=== PATIENT | male | born 1950 | race Caucasian/White ===

== ENCOUNTER 2025-07-21 14:10 | Inpatient (IN) | payer MEDICARE, OTHER ==
[~2025-07-21] VITALS: Ht 180.3 cm; Wt 75.7 kg
[2025-07-21 14:34] LABS: *BILIRUBIN,URIN NEGATIVE (NEGATIVE); *CLARITY,URINE CLEAR (CLEAR); *COLOR,URINE YELLOW (YELLOW); *KETONES,URINE NEGATIVE (NEGATIVE); *PROTEIN,URINE NEGATIVE (NEGATIVE); *UROBILINOGEN,URINE 2.0 E.U./dl (NORMAL); LEUKOCYTE ESTERASE ,URINE NEGATIVE (NEGATIVE); NITRITE, URINE NEGATIVE (NEGATIVE); UGLUCOSE NEGATIVE (NEGATIVE)
[2025-07-21 14:36] LABS: *BLOOD, URINE TRACE (NEGATIVE)
[2025-07-21 14:46] LABS: *AMPHETAMINE, URINE NEGATIVE (NEGATIVE); *BARBITURATE, URINE NEGATIVE (NEGATIVE); *BENZODIAZEPINE, URINE NEGATIVE (NEGATIVE); *CANNABINOID, URINE NEGATIVE (NEGATIVE); *COCCAINE, URINE NEGATIVE (NEGATIVE); *OPIATE, URINE NEGATIVE (NEGATIVE); *PHENCYCLIDINE SCREEN,URINE NEGATIVE (NEGATIVE); FENTANYL, URINE NEGATIVE (NEGATIVE)
[2025-07-21 14:53] LABS: SQUAMOUS EPITHELIAL CELL,UR NONE SEEN /HPF (NONE SEEN)
[2025-07-21] MEDS ORDERED: diphenhydrAMINE 50 MG/1 ML VIAL ONE (15:04)
[2025-07-21] MEDS ORDERED: HALOPERIDOL LACTATE 5 MG/1 ML VIAL ONE (15:05)
[2025-07-21] MEDS ORDERED: LORAZEPAM 2 MG/1 ML VIAL ONE (15:05)
[2025-07-21] MEDS: HALOPERIDOL LACTATE 5 MG/1 ML VIAL IM ONE (15:18)
[2025-07-21] MEDS: LORAZEPAM 2 MG/1 ML VIAL IM ONE (15:18)
[2025-07-21] MEDS: diphenhydrAMINE 50 MG/1 ML VIAL IM ONE (15:18)
[2025-07-21 15:42] LABS: PLATELET COUNT (AUTO) 82 K/uL (152-348); RED BLOOD CELL COUNT(AUTO) 4.52 MIL/uL (4.06-5.63); RED CELL DISTRIBUTION WIDTH 15.4 % (12.1-16.2); WHITE BLOOD COUNT (AUTO) 3.9 K/uL (3.6-10.2)
[2025-07-21 15:50] LABS: CREATININE 0.8 mg/dL (0.6-1.3); SODIUM SERUM 136 mmol/L (136-145); UREA NITROGEN, BLOOD 21 mg/dL (7-18)
[2025-07-21 15:58] LABS: ETHANOL < 3 MG/DL (0-10)
[2025-07-21 16:01] VITALS: BP 149/73
[2025-07-21 16:02] LABS: ASPARTATE AMINOTRANSFERASE 8 U/L (15-37); TOTAL PROTEIN, SERUM 7.8 g/dL (6.4-8.2)
[2025-07-21 16:42] LABS: BAND % (MANUAL) 1 % (0-10); EOSINOPHILS % (MANUAL) 1 % (0-8); LYMPHOCYTES % (MANUAL) 22 % (20-40); MONOCYTES % (MANUAL) 23 % (2-10); NEUTROPHILS % (MANUAL) 53 % (42-75)
[2025-07-21 16:43] LABS: PLATELET ESTIMATE DECREASED
[2025-07-21 18:12] VITALS: BP 137/88; TEMP 98.2; O2SAT 99
[2025-07-21] MEDS ORDERED: LORAZEPAM 1 MG TABLET PO PRN ×2 (18:15→20:15)
[2025-07-21] MEDS ORDERED: ACETAMINOPHEN 325 MG TABLET PO PRN (18:15)
[2025-07-21] MEDS ORDERED: MAG HYDROX/AL HYDROX/SIMETH 30 ML LIQUID UDC PO PRN (18:15)
[2025-07-21] MEDS ORDERED: MAGNESIUM HYDROXIDE 30 ML LIQUID UDC PO PRN (18:15)
[2025-07-21] MEDS ORDERED: TEMAZEPAM 15 MG CAPSULE PO PRN (18:15)
[2025-07-21 19:55] VITALS: BP 112/68; TEMP 98.1; O2SAT 96
[2025-07-21] MEDS: TEMAZEPAM 15 MG CAPSULE PO ONE (21:00)
[2025-07-21] MEDS ORDERED: APIX5TAB PO (23:42)
[2025-07-21] MEDS ORDERED: CARV3.12 PO (23:42)
[2025-07-21] MEDS ORDERED: TRAZ-182 PO (23:42)
[2025-07-21] MEDS ORDERED: RISP3TAB5 PO (23:42)
[2025-07-21] MEDS ORDERED: RISP0.5T5 PO (23:42)
[2025-07-22] MEDS: OLANZAPINE 2.5 MG TABLET PO SCH (12:45)
[2025-07-23] MEDS ORDERED: ACET325T53 PO (09:18)
[2025-07-23] MEDS ORDERED: LORA-259 PO (09:18)
[2025-07-23] MEDS ORDERED: MAG30ORA PO (09:19)
[2025-07-23] MEDS ORDERED: OLAN2.5T3 PO (09:20)
[2025-07-23] MEDS ORDERED: MAGN400O6 PO (09:20)
[2025-07-23] MEDS ORDERED: TEMA30CA PO (09:21)
== END 2025-07-22 16:58 | disposition short-term general hospital (02) | DRG 885 ==
LOC: ER 14:10 → GPS 16:49
PROVIDERS: ADMIT Psychiatry & Neurology Psychiatry
DX: F20.9 Schizophrenia, unspecified (principal); G93.40 Encephalopathy, unspecified; R78.81 Bacteremia; I48.91 Unspecified atrial fibrillation; J44.9 Chronic obstructive pulmonary disease, unspecified; B96.89 Other specified bacterial agents as the cause of diseases classified elsewhere; Z91.199 Patient's noncompliance with other medical treatment and regimen due to unspecified reason; Z79.01 Long term (current) use of anticoagulants; M15.9 Polyosteoarthritis, unspecified; I10 Essential (primary) hypertension; D69.6 Thrombocytopenia, unspecified; F32.A Depression, unspecified; Z79.899 Other long term (current) drug therapy
CPT/HCPCS: 36415; 70030-TC; 71045; 83605; 84443; 84484; 85730; 87040; 87086; G0480; J1200; J1630; J2060

== ENCOUNTER 2025-07-22 17:18 | Inpatient (IN) | payer MEDICARE, OTHER ==
[~2025-07-22] VITALS: Ht 185.4 cm; Wt 81.2 kg
[~2025-07-22 17:18] MED LIST: APIX5TAB PO; CARV3.12 PO; RISP0.5T5 PO; RISP3TAB5 PO; TRAZ-182 PO
[2025-07-22] MEDS ORDERED: REMEDY ESSENTIAL ZINC PASTE 113 GM TP PRN (18:30)
[2025-07-22] MEDS ORDERED: MAGNESIUM HYDROXIDE 30 ML LIQUID UDC PO PRN (18:30)
[2025-07-22] MEDS ORDERED: ONDANSETRON 4 MG/2 ML VIAL IV PRN (18:30)
[2025-07-22] MEDS ORDERED: ACETAMINOPHEN 325 MG TABLET PO PRN (18:30)
[2025-07-22] MEDS: OLANZAPINE 10 MG VIAL IM ONE (19:30)
[2025-07-22] MEDS: diphenhydrAMINE 50 MG/1 ML VIAL IM ONE (22:25)
[2025-07-22] MEDS: LORAZEPAM 2 MG/1 ML VIAL IM ONE (22:25)
[2025-07-22] MEDS: HALOPERIDOL LACTATE 5 MG/1 ML VIAL IM ONE (22:25)
[2025-07-23] MEDS: PANTOPRAZOLE SODIUM 40 MG TABLET.DR PO SCH (07:00)
[2025-07-23] MEDS: VANCOMYCIN IV 1,250 MG in IV DEXTROSE 5% 250 ML IV SCH (08:00)
[2025-07-23] MEDS ORDERED: LORA-259 PO (09:18)
[2025-07-23] MEDS ORDERED: ACET325T53 PO (09:18)
[2025-07-23] MEDS ORDERED: MAG30ORA PO (09:19)
[2025-07-23] MEDS ORDERED: MAGN400O6 PO (09:20)
[2025-07-23] MEDS ORDERED: OLAN2.5T3 PO (09:20)
[2025-07-23] MEDS ORDERED: TEMA30CA PO (09:21)
[2025-07-23] MEDS ORDERED: HALOPERIDOL LACTATE 5 MG/1 ML VIAL IM ONE ×2 (12:15→12:30)
[2025-07-23] MEDS ORDERED: LORAZEPAM 2 MG/1 ML VIAL IV ONE (12:15)
[2025-07-23] MEDS: diphenhydrAMINE 50 MG/1 ML VIAL IM ONE ×2 (13:13→20:45)
[2025-07-23] MEDS: LORAZEPAM 2 MG/1 ML VIAL IM ONE (13:13)
[2025-07-23] MEDS: HALOPERIDOL LACTATE 5 MG/1 ML VIAL IM ONE (13:13)
[2025-07-23 14:28] LABS: PLATELET COUNT (AUTO) 82 K/uL (152-348); RED BLOOD CELL COUNT(AUTO) 4.92 MIL/uL (4.06-5.63); RED CELL DISTRIBUTION WIDTH 15.1 % (12.1-16.2); WHITE BLOOD COUNT (AUTO) 3.2 K/uL (3.6-10.2)
[2025-07-23 14:40] LABS: ASPARTATE AMINOTRANSFERASE 15 U/L (15-37); CREATININE 0.7 mg/dL (0.6-1.3); SODIUM SERUM 136 mmol/L (136-145); TOTAL PROTEIN, SERUM 7.5 g/dL (6.4-8.2); UREA NITROGEN, BLOOD 18 mg/dL (7-18)
[2025-07-23] MEDS: IV NS 1000 ML 1,000 ML IV PRN (16:23)
[2025-07-23 16:43] VITALS: BP 126/79; TEMP 97.5; O2SAT 97
[2025-07-23 19:14] LABS: *BILIRUBIN,URIN NEGATIVE (NEGATIVE); *BLOOD, URINE NEGATIVE (NEGATIVE); *CLARITY,URINE CLEAR (CLEAR); *COLOR,URINE YELLOW (YELLOW); *KETONES,URINE NEGATIVE (NEGATIVE); *PROTEIN,URINE NEGATIVE (NEGATIVE); *UROBILINOGEN,URINE 1.0 E.U./dl (NORMAL); LEUKOCYTE ESTERASE ,URINE NEGATIVE (NEGATIVE); NITRITE, URINE NEGATIVE (NEGATIVE); UGLUCOSE NEGATIVE (NEGATIVE)
[2025-07-23 19:32] LABS: SQUAMOUS EPITHELIAL CELL,UR NONE SEEN /HPF (NONE SEEN)
[2025-07-23 20:32] LABS: BAND % (MANUAL) 1 % (0-10); LYMPHOCYTES % (MANUAL) 30 % (20-40); MONOCYTES % (MANUAL) 25 % (2-10); NEUTROPHILS % (MANUAL) 44 % (42-75); PLATELET ESTIMATE DECREASED
[2025-07-24] MEDS: LORAZEPAM 2 MG/1 ML VIAL IM PRN (05:06)
[2025-07-24] MEDS: HALOPERIDOL LACTATE 5 MG/1 ML VIAL IM PRN (05:06)
[2025-07-24 07:15] LABS: PLATELET COUNT (AUTO) 85 K/uL (152-348); RED BLOOD CELL COUNT(AUTO) 4.77 MIL/uL (4.06-5.63); RED CELL DISTRIBUTION WIDTH 15.3 % (12.1-16.2); WHITE BLOOD COUNT (AUTO) 4.1 K/uL (3.6-10.2)
[2025-07-24 07:39] LABS: CREATININE 0.9 mg/dL (0.6-1.3); SODIUM SERUM 139 mmol/L (136-145); UREA NITROGEN, BLOOD 15 mg/dL (7-18)
[2025-07-24 09:17] LABS: EOSINOPHILS % (MANUAL) 1 % (0-8); LYMPHOCYTES % (MANUAL) 29 % (20-40); MONOCYTES % (MANUAL) 27 % (2-10); NEUTROPHILS % (MANUAL) 43 % (42-75)
[2025-07-24 09:18] LABS: PLATELET ESTIMATE DECREASED
[2025-07-24] MEDS: VANCOMYCIN IV 1,000 MG in IV DEXTROSE 5% 250 ML IV SCH (20:44)
[2025-07-25 06:45] LABS: PLATELET COUNT (AUTO) 79 K/uL (152-348); RED BLOOD CELL COUNT(AUTO) 4.72 MIL/uL (4.06-5.63); RED CELL DISTRIBUTION WIDTH 15.4 % (12.1-16.2); WHITE BLOOD COUNT (AUTO) 4.2 K/uL (3.6-10.2)
[2025-07-25 08:45] LABS: CREATININE 1.1 mg/dL (0.6-1.3); SODIUM SERUM 139 mmol/L (136-145); UREA NITROGEN, BLOOD 29 mg/dL (7-18)
[2025-07-25 09:18] LABS: EOSINOPHILS % (MANUAL) 1 % (0-8); LYMPHOCYTES % (MANUAL) 22 % (20-40); MONOCYTES % (MANUAL) 31 % (2-10); NEUTROPHILS % (MANUAL) 46 % (42-75); PLATELET ESTIMATE DECREASED
[2025-07-25 11:27] VITALS: BP 101/59; TEMP 97.6; O2SAT 94
[2025-07-25 15:33] VITALS: BP 107/73; TEMP 98.2; O2SAT 98
[2025-07-26 03:30] LABS: *BILIRUBIN,URIN NEGATIVE (NEGATIVE); *CLARITY,URINE CLEAR (CLEAR); *COLOR,URINE YELLOW (YELLOW); *KETONES,URINE NEGATIVE (NEGATIVE); *PROTEIN,URINE NEGATIVE (NEGATIVE); *UROBILINOGEN,URINE 0.2 E.U./dl (NORMAL); LEUKOCYTE ESTERASE ,URINE NEGATIVE (NEGATIVE); NITRITE, URINE NEGATIVE (NEGATIVE); UGLUCOSE NEGATIVE (NEGATIVE)
[2025-07-26 03:35] LABS: *BLOOD, URINE TRACE (NEGATIVE)
[2025-07-26 03:52] LABS: SQUAMOUS EPITHELIAL CELL,UR NONE SEEN /HPF (NONE SEEN)
== END 2025-07-26 22:21 | DRG 872 ==
LOC: MEDSURG3 17:18
DX: R78.81 Bacteremia (principal); G93.40 Encephalopathy, unspecified; F03.93 Unspecified dementia, unspecified severity, with mood disturbance; B95.7 Other staphylococcus as the cause of diseases classified elsewhere; I48.91 Unspecified atrial fibrillation; Z79.01 Long term (current) use of anticoagulants; J44.9 Chronic obstructive pulmonary disease, unspecified; Z91.199 Patient's noncompliance with other medical treatment and regimen due to unspecified reason; F94.0 Selective mutism; F20.9 Schizophrenia, unspecified; F32.A Depression, unspecified; Z79.899 Other long term (current) drug therapy
CPT/HCPCS: 36415; 70030-TC; 83605; 83735; 84100; 87040; 87086; A4663; G0378; J1200; J1630; J2060; J2358; J3373; J7040; J7050

== ENCOUNTER 2025-07-26 22:31 | Inpatient (IN) | payer MEDICARE, OTHER ==
[~2025-07-26] VITALS: Ht 175.3 cm; Wt 72.6 kg
[~2025-07-26 22:31] MED LIST changes: +ACET325T53 PO; +LORA-259 PO; +MAG30ORA PO; +MAGN400O6 PO; +OLAN2.5T3 PO; -RISP0.5T5 PO; -RISP3TAB5 PO; +TEMA30CA PO; -TRAZ-182 PO
[2025-07-26] MEDS ORDERED: MAG HYDROX/AL HYDROX/SIMETH 30 ML LIQUID UDC PO PRN (22:45)
[2025-07-26] MEDS ORDERED: TEMAZEPAM 7.5 MG CAPSULE PO PRN ×2 (22:45)
[2025-07-26] MEDS ORDERED: LORAZEPAM 0.5 MG TABLET PO PRN (22:45)
[2025-07-26] MEDS ORDERED: MAGNESIUM HYDROXIDE 30 ML LIQUID UDC PO PRN (22:45)
[2025-07-26] MEDS ORDERED: LORAZEPAM 1 MG TABLET PO PRN (22:45)
[2025-07-27] MEDS: OLANZAPINE 5 MG TABLET PO SCH (11:00)
[2025-07-27] MEDS: CARVEDILOL 3.125 MG TABLET PO SCH (21:00)
[2025-07-27] MEDS: APIXABAN 5 MG TABLET PO SCH (21:00)
[2025-07-29] MEDS: MIRTAZAPINE 15 MG TABLET PO SCH (20:04)
[2025-07-29] MEDS: LORAZEPAM 2 MG/1 ML VIAL IM ONE (20:18)
[2025-07-29] MEDS: diphenhydrAMINE 50 MG/1 ML VIAL IM ONE (20:18)
[2025-07-29] MEDS: HALOPERIDOL LACTATE 5 MG/1 ML VIAL IM ONE (20:18)
[2025-07-30] MEDS: OLANZAPINE 5 MG TABLET PO SCH (16:08)
[2025-07-30] MEDS: ACETAMINOPHEN 325 MG TABLET PO PRN (19:53)
[2025-07-30] MEDS: LORAZEPAM 1 MG TABLET PO PRN (19:54)
[2025-07-31] MEDS: TEMAZEPAM 15 MG CAPSULE PO PRN (00:26)
[2025-08-02] MEDS ORDERED: OLANZAPINE 10 MG VIAL IM PRN ×2 (09:30→14:00)
[2025-08-02] MEDS: OLANZAPINE 5 MG TABLET PO SCH (21:02)
[2025-08-09 20:54] VITALS: BP 120/65
== END 2025-08-11 13:15 | DRG 885 ==
LOC: GPS 22:31
PROVIDERS: ADMIT Registered Nurse; ATTEND Nurse Practitioner Family
DX: F20.9 Schizophrenia, unspecified (principal); G93.41 Metabolic encephalopathy; J44.9 Chronic obstructive pulmonary disease, unspecified; I48.91 Unspecified atrial fibrillation; Z79.01 Long term (current) use of anticoagulants; F32.A Depression, unspecified; Z20.822 Contact with and (suspected) exposure to COVID-19; F29 Unspecified psychosis not due to a substance or known physiological condition; Z91.199 Patient's noncompliance with other medical treatment and regimen due to unspecified reason
CPT/HCPCS: J1200; J1630; J2060